=== PATIENT | female | born 1970 | race Caucasian/White ===

== ENCOUNTER 2018-03-19 12:09 | Emergency (ER) | payer OTHER ==
--- NOTE | 2018-03-19 13:28 | ED Physician Documentation ---
PD HPI HEENT - Stated complaint Stated Complaint: R EYE SWOLLEN/EAR/NECK PX - Chief complaint Chief Complaint: Heent - History obtained from History obtained from: Patient - History of Present Illness Timing - onset: Yesterday Timing - details: Still present Location: Other (Right side of face.) Associated symptoms: Facial swelling Similar symptoms before: Has not had sx before - Additional information Additional information: The patient is a 47-year-old female who presents with swelling on the right side of her face. It is mostly the upper face, including the right periorbital soft tissue. The swelling started yesterday, and continues today. She denies any change in her vision. She denies fever or sore throat. She reports slight headache. She denies history of similar symptoms in the past. Review of Systems Constitutional: denies: Fever, Chills Eyes: denies: Decreased vision, Irritation Ears: denies: Ear pain Nose: denies: Congestion Throat: denies: Sore throat Cardiac: denies: Chest pain / pressure Respiratory: denies: Dyspnea, Cough GI: denies: Abdominal Pain, Nausea, Vomiting : denies: Dysuria Skin: denies: Rash Musculoskeletal: denies: Neck pain, Extremity swelling Neurologic: reports: Headache (slight headache.). 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 - Present Medications Home Medications: Ambulatory Orders Medication Instructions Recorded Confirmed Multivitamin [Multivitamins] 1 each PO 03/19/18 - Allergies Allergies/Adverse Reactions: Allergies Allergy/AdvReac Type Severity Reaction Status Date / Time Penicillins Allergy Hives Verified 03/19/18 12:15 - Social History Does the pt smoke?: No Smoking Status: Never smoker Does the pt drink ETOH?: Yes Does the pt have substance abuse?: No - Immunizations Immunizations are current?: Yes PD ED PE NORMAL - Vitals Vital signs reviewed: Yes (Borderline hypertension.) - General General: Alert and oriented X 3, Well developed/nourished - HEENT HEENT: Atraumatic, PERRL, EOMI, Ears normal, Moist mucous membranes, Pharynx benign, Dentition benign, Other (There is mild soft tissue swelling involving the right upper face, including the periorbital soft tissue. There is no warmth or erythema. There is no tenderness to palpation. There are no wounds or abrasions involving the face or scalp. There is no adenopathy detected. There is no tenderness to palpation of individual teeth.) - Neck Neck: Supple, no meningeal sign, No adenopathy, No JVD - Cardiac Cardiac: RRR, No murmur - Respiratory Respiratory: No respiratory distress, Clear bilaterally - Abdomen Abdomen: Soft, Non tender - Back Back: No CVA TTP - Derm Derm: No rash - Extremities Extremities: No edema, No calf tenderness / cord - Neuro Neuro: Alert and oriented X 3, No motor deficit, No sensory deficit, Normal speech Results - Vitals Vitals: Oxygen O2 Source Room air PD MEDICAL DECISION MAKING - ED course Complexity details: considered differential, d/w patient ED course: The underlying cause for the patient's right first swelling is unclear at this time. There is no evidence of infectious process or trauma. Localized reaction to an allergen is considered, but there is been no skin contact of which the patient is aware. Without any evidence to suggest infectious process, there is no clinical indication to treat with antibiotics. Similarly, there is not enough certainty that this is a localized allergic reaction to institute anti-allergy treatment. I discussed with the patient worrisome signs or symptoms that should prompt reevaluation in the emergency department. Departure - Departure Disposition: 01 Home, Self Care Clinical Impression: Right facial swelling Condition: Stable Instructions: ED Inflammation Eyelid Follow-Up: VER[facility] [place] [Provider Group] Comments: Apply ice pack to the right side of the face intermittently for the next 2 days. He can use Tylenol or ibuprofen if needed for fever or discomfort. Follow up with your primary physician within 1 week. Call to schedule appointment. Return to the emergency department if you develop increasing facial swelling, pain, or otherwise worsening symptoms. Discharge Date/Time: 03/19/18 13:34
[2018-03-19 13:35] VITALS: BP 130/93
== END 2018-03-19 13:34 | disposition home or self-care (01) ==
LOC: ED 12:09
DX: R22.0 Localized swelling, mass and lump, head (principal)
CPT/HCPCS: 99282; 99283

== ENCOUNTER 2024-03-08 16:47 | Emergency (ER) | payer OTHER ==
[2024-03-08 17:18] VITALS: BP 127/106; O2SAT 100
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
[2024-03-08] MEDS: KETOROLAC 30 MG/ML VIAL IM STA (19:43)
[2024-03-08] MEDS: HYDROmorphone 1 MG/ML CARPUJECT IM STA (19:44)
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
[2024-03-08] MEDS: ONDANSETRON ODT 4 MG TABLET TL STA (20:19)
[2024-03-08] MEDS: HYDROcod/ACET 5/325 Prepack 4 PO STA (20:19)
[2024-03-08] MEDS: ONDANSETRON ODT 4 MG Prepack 2 TL STA (20:20)
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
== END 2024-03-08 20:30 | disposition home or self-care (01) ==
LOC: ED 16:47
DX: S13.9XXA Sprain of joints and ligaments of unspecified parts of neck, initial encounter (principal); S39.92XA Unspecified injury of lower back, initial encounter; S79.911A Unspecified injury of right hip, initial encounter; V43.52XA Car driver injured in collision with other type car in traffic accident, initial encounter; Y92.488 Other paved roadways as the place of occurrence of the external cause; E78.00 Pure hypercholesterolemia, unspecified; G47.30 Sleep apnea, unspecified; Z79.899 Other long term (current) drug therapy
CPT/HCPCS: 72125; 72128; 72131; 73502; 96372; 99284; A9270; J1170; Q0162

== ENCOUNTER 2024-04-12 10:18 | Outpatient (CLI) | payer OTHER | END 2024-04-12 10:19 | disposition home or self-care (01) | LOC: CAM 10:18 | PROVIDERS: ATTEND Internal Medicine | DX: M54.59 Other low back pain (principal) | CPT/HCPCS: 97810; 97811 ==

== ENCOUNTER 2024-04-19 10:57 | Outpatient (CLI) | payer OTHER | END 2024-04-19 10:58 | disposition home or self-care (01) | LOC: CAM 10:57 | PROVIDERS: ATTEND Internal Medicine | DX: M54.59 Other low back pain (principal) | CPT/HCPCS: 97810; 97811 ==

== ENCOUNTER 2024-04-26 10:54 | Outpatient (CLI) | payer OTHER | END 2024-04-26 10:55 | disposition home or self-care (01) | LOC: CAM 10:54 | PROVIDERS: ATTEND Internal Medicine | DX: M54.59 Other low back pain (principal) | CPT/HCPCS: 97810; 97811 ==

== ENCOUNTER 2024-05-03 10:49 | Outpatient (CLI) | payer OTHER | END 2024-05-03 10:50 | disposition home or self-care (01) | LOC: CAM 10:49 | PROVIDERS: ATTEND Internal Medicine | DX: M54.59 Other low back pain (principal) | CPT/HCPCS: 97810; 97811 ==

== ENCOUNTER 2024-05-17 14:07 | Outpatient (CLI) | payer OTHER | END 2024-05-17 14:08 | disposition home or self-care (01) | LOC: CAM 14:07 | PROVIDERS: ATTEND Internal Medicine | DX: M54.59 Other low back pain (principal) | CPT/HCPCS: 97810; 97811 ==

== ENCOUNTER 2024-05-19 13:46 | Outpatient (CLI) | payer OTHER | END 2024-05-19 13:47 | disposition home or self-care (01) | LOC: CAM 13:46 | PROVIDERS: ATTEND Internal Medicine | DX: M54.59 Other low back pain (principal) | CPT/HCPCS: 97810; 97811 ==

== ENCOUNTER 2024-05-24 14:09 | Outpatient (CLI) | payer OTHER | END 2024-05-24 14:10 | disposition home or self-care (01) | LOC: CAM 14:09 | PROVIDERS: ATTEND Internal Medicine | DX: M54.59 Other low back pain (principal) | CPT/HCPCS: 97810; 97811 ==

== ENCOUNTER 2024-05-26 13:35 | Outpatient (CLI) | payer OTHER | END 2024-05-26 13:36 | disposition home or self-care (01) | LOC: CAM 13:35 | PROVIDERS: ATTEND Internal Medicine | DX: M54.59 Other low back pain (principal) | CPT/HCPCS: 97810; 97811 ==

== ENCOUNTER 2024-05-31 13:38 | Outpatient (CLI) | payer OTHER | END 2024-05-31 13:39 | disposition home or self-care (01) | LOC: CAM 13:38 | PROVIDERS: ATTEND Internal Medicine | DX: M54.59 Other low back pain (principal) | CPT/HCPCS: 97810; 97811 ==

== ENCOUNTER 2024-06-02 13:38 | Outpatient (CLI) | payer OTHER | END 2024-06-02 13:39 | disposition home or self-care (01) | LOC: CAM 13:38 | PROVIDERS: ATTEND Internal Medicine | DX: M54.59 Other low back pain (principal) | CPT/HCPCS: 97810; 97811 ==

== ENCOUNTER 2024-07-28 15:37 | Outpatient (CLI) | payer OTHER | END 2024-07-28 15:38 | disposition home or self-care (01) | LOC: CAM 15:37 | PROVIDERS: ATTEND Internal Medicine | DX: M54.59 Other low back pain (principal) | CPT/HCPCS: 97810; 97811 ==

== ENCOUNTER 2024-08-04 14:38 | Outpatient (CLI) | payer OTHER | END 2024-08-04 14:39 | disposition home or self-care (01) | LOC: CAM 14:38 | PROVIDERS: ATTEND Internal Medicine | DX: M54.59 Other low back pain (principal) | CPT/HCPCS: 97810; 97811 ==